=== PATIENT | female | born 1975 | race Caucasian/White ===

== ENCOUNTER 2022-04-30 07:38 | Emergency (ER) | payer OTHER ==
[2022-04-30 07:54] VITALS: RESP 16; TEMP 98.2; BMI 35.0
[2022-04-30] MEDS ORDERED: FAMOTIDINE 20 MG/50 ML IVPB 20 MG/50 ML MG IVPB ONE (08:08)
[2022-04-30] MEDS ORDERED: ACETAMINOPHEN 1000 MG/100 ML BAG IVPB ONE (08:08)
[2022-04-30] MEDS ORDERED: MAG HYDROX/AL HYDROX/SIMETH 30 ML UNIT-DOSE CUP PO ONE (08:08)
[2022-04-30] MEDS ORDERED: ACETAMINOPHEN INJECTION 100 ML IVPB ONE (08:19)
[2022-04-30] MEDS ORDERED: FAMOTIDINE 10 MG/ML VIAL IVPB ONE (08:20)
[2022-04-30] MEDS ORDERED: MAG HYDROX/AL HYDROX/SIMETH 30 ML UNIT-DOSE CUP ONE (08:20)
[2022-04-30 08:50] LABS: BASO % 0.8 % (0-2.0); EOS % 0.3 % (0-4.5); HEMOGLOBIN 13.8 GM/dL (10.7-15.3); LYMPH % 15.3 % (8-40); MCH 27.2 pg (25.7-33.7); MCHC 32.8 g/dl (32.0-36.0); MEAN PLT VOLUME 8.6 fl (7.5-11.1); MONO % 2.9 % (3.8-10.2); NEUT % 80.7 % (42.8-82.8); PLATELET COUNT 373 10^3/uL (134-434); RBC 5.06 M/mm3 (3.60-5.2); RDW 14.7 % (11.6-15.6); WHITE BLOOD COUNT 8.7 K/mm3 (4.0-10.0)
[2022-04-30 09:09] LABS: CALCIUM 9.1 mg/dL (8.5-10.1)
[2022-04-30 09:10] LABS: ALBUMIN 3.8 g/dl (3.4-5.0)
[2022-04-30 09:13] LABS: CREATININE 0.6 mg/dL (0.55-1.3)
[2022-04-30 09:14] LABS: BILIRUBIN,TOTAL 0.4 mg/dL (0.2-1); TOT PROT 7.5 g/dl (6.4-8.2)
[2022-04-30] MEDS ORDERED: KETOROLAC TROMETHAMINE 15 MG/ML VIAL IVPUSH ONE (10:45)
[2022-04-30] MEDS ORDERED: KETOROLAC TROMETHAMINE 15 MG/ML VIAL ONE (11:20)
[2022-04-30 13:06] LABS: EPI CELLS 16 /uL (0-25.1); HYALINE CASTS 0 /uL (0-3.1); PH,URINE 7.5 (5.0-8.0); URINE APPEARANCE CLEAR; URINE BACTERIA 134 /uL (0-1359); URINE BILIRUBIN NEGATIVE (NEGATIVE); URINE COLOR YELLOW; URINE GLUCOSE (UA) NEGATIVE (NEGATIVE); URINE KETONE NEGATIVE (NEGATIVE); URINE LEUK ESTERASE NEGATIVE (NEGATIVE); URINE NITRITE NEGATIVE (NEGATIVE); URINE PROTEIN NEGATIVE (NEGATIVE); URINE RBC 47 /uL (0-23.9); URINE UROBILINOGEN 0.2 mg/dL (0.2-1.0); URINE WBC 7 /uL (0-25.8)
[2022-04-30 15:28] VITALS: BP 123/75; PULSE 68
== END 2022-04-30 15:58 | disposition home or self-care (01) ==
LOC: JER 07:38
PROC: 3E0333Z Introduction of Anti-inflammatory into Peripheral Vein, Percutaneous Approach (ICD-10-PCS; principal; 2022-04-30)
PROC: 3E033GC Introduction of Other Therapeutic Substance into Peripheral Vein, Percutaneous Approach (ICD-10-PCS; 2022-04-30)
PROC: 3E0333Z Introduction of Anti-inflammatory into Peripheral Vein, Percutaneous Approach (ICD-10-PCS; 2022-04-30)
DX: R10.13 Epigastric pain (principal)
CPT/HCPCS: 36415; 74176-TC; 76705-TC; 80053; 81003; 83690; 84484; 85025; 87086; 93005; 93010; 99285-25

== ENCOUNTER 2022-04-30 22:46 | Emergency (ER) | payer OTHER ==
[2022-04-30 22:57] VITALS: BP 147/88; PULSE 74; RESP 16; TEMP 98.4; BMI 35.0
[2022-04-30] MEDS ORDERED: ONDANSETRON *ODT* 4 MG TABLET SL ONE (23:01)
[2022-04-30] MEDS ORDERED: ONDANSETRON *ODT* 4 MG TABLET ONE (23:04)
[2022-04-30] MEDS ORDERED: FAMOTIDINE 20 MG TABLET PO ONE (23:22)
[2022-04-30] MEDS ORDERED: MAG HYDROX/AL HYDROX/SIMETH 30 ML UNIT-DOSE CUP PO ONE (23:22)
[2022-04-30] MEDS ORDERED: FAMOTIDINE 20 MG TABLET ONE (23:22)
[2022-04-30] MEDS ORDERED: MAG HYDROX/AL HYDROX/SIMETH 30 ML UNIT-DOSE CUP ONE (23:23)
== END 2022-04-30 23:44 | disposition home or self-care (01) ==
LOC: FER 22:46
DX: R11.2 Nausea with vomiting, unspecified (principal); R19.7 Diarrhea, unspecified
CPT/HCPCS: 99283-25; Q0162

== ENCOUNTER 2023-12-01 20:04 | Emergency (ER) | payer OTHER ==
[2023-12-01 20:11] VITALS: BP 118/76; PULSE 82; RESP 17; TEMP 97.6; BMI 36.3
[2023-12-01] MEDS ORDERED: ACETAMINOPHEN 500 MG TABLET (FP) ONE (21:07)
[2023-12-01] MEDS: ACETAMINOPHEN 500 MG TABLET (FP) PO ONE (21:09)
== END 2023-12-02 00:28 | disposition home or self-care (01) ==
LOC: JERFT 20:04
DX: S82.831A Other fracture of upper and lower end of right fibula, initial encounter for closed fracture (principal); W10.9XXA Fall (on) (from) unspecified stairs and steps, initial encounter; Y92.22 Religious institution as the place of occurrence of the external cause
CPT/HCPCS: 73590-TC-RT-FY; 73610-TC-RT-FY; 73630-TC-RT-FY; 99283-25

== ENCOUNTER 2023-12-05 09:18 | Day surgery (SDC) | payer OTHER ==
[2023-12-03 16:31] VITALS: BMI 36.3
[2023-12-05] MEDS ORDERED: MIDAZOLAM HCL 2 MG/2 ML SINGLE DOSE VIAL ONE (09:44)
[2023-12-05] MEDS ORDERED: PROPOFOL 20 ML ONE (09:44)
[2023-12-05] MEDS ORDERED: DEXAMETHASONE SOD PHOSPHATE 4 MG/1 ML VIAL ONE ×2 (10:25)
[2023-12-05] MEDS ORDERED: ONDANSETRON 4 MG/2 ML VIAL ONE (10:25)
[2023-12-05] MEDS ORDERED: LIDOCAINE HCL/PF 2% SDV 5ML VIAL ONE (10:25)
[2023-12-05] MEDS ORDERED: ACETAMINOPHEN INJECTION 100 ML ONE (11:20)
[2023-12-05] MEDS ORDERED: ROPIVACAINE HCL/PF 100 MG/20 ML VIAL ONE (11:20)
[2023-12-05] MEDS ORDERED: ePHEDrine SULFATE 50 MG/1 ML AMPULE ONE (12:32)
[2023-12-05] MEDS ORDERED: ONDANSETRON 4 MG/2 ML VIAL IVPUSH PRN (14:02)
[2023-12-05] MEDS ORDERED: oxyCODONE HCL 5 MG TABLET PO PRN ×2 (14:02)
[2023-12-05] MEDS ORDERED: FENTANYL CITRATE/PF 50 MCG/ML VIAL ONE (14:21)
[2023-12-05] MEDS ORDERED: oxyCODONE HCL 5 MG TABLET ONE (15:11)
[2023-12-05 15:44] VITALS: TEMP 96.9
[2023-12-05 16:46] VITALS: RESP 18
[2023-12-05 16:50] VITALS: BP 128/81; PULSE 86
== END 2023-12-05 17:11 | disposition home or self-care (01) ==
LOC: FASU 09:18
PROVIDERS: ATTEND Orthopaedic Surgery Sports Medicine
PROC: 0SSF0ZZ Reposition Right Ankle Joint, Open Approach (ICD-10-PCS; 2023-12-05)
PROC: 0QSB04Z Reposition Right Lower Femur with Internal Fixation Device, Open Approach (ICD-10-PCS; principal; 2023-12-05 12:15)
DX: S82.64XA Nondisplaced fracture of lateral malleolus of right fibula, initial encounter for closed fracture (principal); S93.431A Sprain of tibiofibular ligament of right ankle, initial encounter; X58.XXXA Exposure to other specified factors, initial encounter; Y93.9 Activity, unspecified; Y92.9 Unspecified place or not applicable
CPT/HCPCS: 27792; 27829; C1713; 73610-TC-RT-FY; 73630-TC-RT-FY; 81025; 94760; J0131